=== PATIENT | female | born 1965 | race Caucasian/White ===

== ENCOUNTER 2016-10-21 11:58 | Emergency (ER) | payer BC ==
--- NOTE | 2016-10-21 12:19 | Emergency Department Record ---
History of Present Illness - General Chief complaint: Extremity Problem Stated complaint: FALL LEFT HAND INJURY Time Seen by Provider: 10/21/16 12:19 Source: Patient Mode of Arrival: Ambulatory Limitations: No limitations - History of Present Illness Initial comments: The patient tripped and fell and injured her L 5th finger. She denies any other injuries. Complaint: Extremity pain Onset/Timin -: Hour(s) - Related Data Home Medications Medication Instructions Recorded Confirmed Last Taken No Home Med [NO HOME MEDS] 10/21/16 10/21/16 Unknown Allergies Allergy/AdvReac Type Severity Reaction Status Date / Time No Known Drug Allergies Allergy Verified 10/21/16 12:16 Review of Systems Constitutional: Denies: Chills, Fever Eyes: Denies: Eye discharge ENT: Denies: Congestion Respiratory: Denies: Cough, Dyspnea Past Medical History - SOCIAL HISTORY Smoking Status: Never smoker Alcohol Use: Occassional Drug Use: None - RESPIRATORY Hx Respiratory Disorders: Yes Comment:: reactive airway disease - CARDIOVASCULAR Hx Cardio Disorders: No - NEURO Hx Neuro Disorders: No - GI Hx GI Disorders: No - Hx Genitourinary Disorders: No - ENDOCRINE Hx Endocrine Disorders: No - MUSCULOSKELETAL Hx Musculoskeletal Disorders: Yes Comment:: RA - PSYCH Hx Psych Problems: No - HEMATOLOGY/ONCOLOGY Hx Hematology/Oncology Disorders: No Family Medical History Any Significant Family History?: No Physical Exam - General General Appearance: Alert, Cooperative, No acute distress - Head Head exam: Atraumatic, Normocephalic, Normal inspection - Extremities Extremities exam: Joint swelling, Normal capillary refill, Tenderness. negative : Normal inspection (There is a lateral dislocation of the L 5th finger PIP joint.), Full ROM (No ROM due to the dislocation.) Course Vital Signs 10/21/16 12:11 Temperature 97.5 F L Pulse Rate [ 82 Pulse Ox Probe] Respiratory 16 Rate Blood Pressure 101/70 [Right Arm] Pulse Ox 100 - Reevaluation(s) Reevaluation #1: Procedure note:The L 5th finger was anesth. using a digital block with a 50:50 mixture of Lido 1% and Sensoricaine 0.25%. The L 5th finger PIP joint was then relocated with no difficulty. There were no complications. After the procedure the PIP joint was functioning normal with normal flexor and extensor tendon function. 10/21/16 12:58 Reevaluation #2: The patient was checked 20 minutes post procedure and had no finger pain and normal ROM. 10/21/16 13:01 Medical Decision Making - Data Complexity MDM Data: X-Ray Ordered and/or Reviewed - Radiology Data Radiology results: Report reviewed (L hand: 5th finger PIP joint was WNL. There was no fx or dislocation.) Disposition Disposition: Discharge Clinical Impression: Dislocation, finger closed Qualifiers: Encounter type: initial encounter Qualified Code(s): S63.259A - Unspecified dislocation of unspecified finger, initial encounter Disposition: Home, Self-Care Condition: (1) Good Instructions: Finger Sprain (ED) Additional Instructions: Please wear the splint for 1-2 weeks. Use tylenol or Motrin for pain. Please see your PCP the week after next for recheck. Forms: Patient Portal Access Time of Disposition: 12:55
--- NOTE | 2016-10-25 10:03 | RADIOLOGY REPORT ---
EXAM: LEFT FIFTH FINGER HISTORY: FALL. TECHNIQUE: Three views of the left fifth finger were obtained. Comparison: None. Encounter: Initial. FINDINGS: Nondisplaced distal tuft fracture. Mild soft tissue swelling. No dislocation. No other fractures. IMPRESSION: NONDISPLACED DISTAL TUFT FRACTURE. JOB NUMBER: [id number] MTDD
== END 2016-10-21 13:02 | disposition home or self-care (01) ==
LOC: ER 11:58
DX: S63.287A Dislocation of proximal interphalangeal joint of left little finger, initial encounter (principal); W18.09XA Striking against other object with subsequent fall, initial encounter
CPT/HCPCS: 26770; 73140; 99283